=== PATIENT | male | born 1980 | race Two or more races ===

== ENCOUNTER 2025-08-06 03:38 | Emergency (ER) | payer OTHER, SELFPAY ==
[2025-08-06 03:39] VITALS: BP 189/143; PULSE 87; RESP 20; TEMP 36.8; O2SAT 97
[2025-08-06 03:40] VITALS: BMI 36.0
--- NOTE | 2025-08-06 03:42 | EKG_ITS ---
[facility] Test Date: 2025-08-06 Pat Name: JM AYALA Department: Room: - Gender: Male [employer]: : 1980 Requested By: Ramiro Kimble Order Number: [id number] Reading MD: Ramiro Kimble Measurements Intervals [place] Rate: 81 P: 38 NM: 157 QRS: -5 QRSD: 92 T: 8 QT: 355 QTc: 413 Interpretive Statements SINUS RHYTHM No previous ECG available for comparison /store/S0/[id number]/ecg/[id number].pdf
--- NOTE | 2025-08-06 04:00 | XR_ITS ---
EXAMINATION: PA chest single view TECHNIQUE: Upright PA chest single view Date and time: August 08, 2025, 0441 hours INDICATIONS: Coughing shortness of breath chest pain today. FINDINGS: Normal heart size Mild opacity right base laterally Left lung clear Intact osseous structures IMPRESSION: Early pneumonia right base
--- NOTE | 2025-08-06 04:04 | PD.EDRME ---
Rapid Medical Screening Exam RME Arrival date/time: 08/06/25 03:38 45M with history of HTN presents to ED with 5 days of cough (finished Z-miri) as well as 1 day of heart palps, CP, and SOB. Patient denies drug/alcohol use. Chief Complaint: Arrhythmia/Palpitations Time Seen by Provider: 08/06/25 04:00 Vital signs: Vital Signs Temperature 98.2 F 08/06/25 03:39 Pulse Rate 87 08/06/25 03:39 Respiratory Rate 20 08/06/25 03:39 Blood Pressure 189/143 H 08/06/25 03:39 Pulse Oximetry (%) 97 08/06/25 03:39 Oxygen Delivery Method Room Air 08/06/25 03:39 Exam: Clear lungs. Normal WOB. Clinical Impression: URI vs CAP vs PE vs anxiety vs drug use
[2025-08-06 04:28] LABS: Basophils # (Auto) 0.0 Thou/mm3 (0.0-0.2); Basophils % (Auto) 0 % (0-2.5); Eosinophils # (Auto) 0.1 Thou/mm3 (0.0-0.5); Eosinophils % (Auto) 1 % (0-10); Hematocrit 44.7 % (41.0-53.0); Hemoglobin 14.9 g/dL (13.5-16.0); Immature Granulocytes Auto 0.03 Thou/mm3 (0.00-0.00); Lymphocytes # (Auto) 3.3 Thou/mm3 (1.0-4.8); Lymphocytes % (Auto) 48 % (10-50); Mean Corpuscular HGB Conc 33.3 g/dl (31.0-37.0); Mean Corpuscular Hemoglobin 29.7 pg (25.0-35.0); Mean Corpuscular Volume 89 fL (80-100); Monocytes # (Auto) 0.6 Thou/mm3 (0.0-0.8); Monocytes % (Auto) 9 % (0-12); Neutrophils # (Auto) 2.9 Thou/mm3 (1.8-7.7); Neutrophils % (Auto) 42 % (37-80); Nucleated Red Blood Cell # 0.00 Thou/mm3 (0.00-0.00); Nucleated Red Blood Cell % 0 /100 WBC (0); Platelet Count 211 Thou/mm3 (140-440); RDW Standard Deviation 40.3 fL (35.1-43.9); Red Blood Count 5.02 Miln/mm3 (4.50-5.90); White Blood Count 7.0 Thou/mm3 (3.8-10.6)
[2025-08-06 04:47] LABS: D-Dimer < 250 ng/mL (<600)
[2025-08-06 04:52] LABS: Alanine Aminotransferase 12 U/L (10-49); Albumin, Serum 4.9 gm/dL (3.5-5.0); Albumin/Globulin Ratio 1.4 (1.2-2.2); Alkaline Phosphatase 78 U/L (46-116); Anion Gap 9 (7-16); Aspartate Amino Transferase 18 U/L (0-34); BUN/Creatinine Ratio 16 Ratio (12-20); Bilirubin,Total 0.3 mg/dL (0.3-1.2); Blood Urea Nitrogen 19 mg/dL (9-23); Calcium 9.9 mg/dL (8.3-10.6); Calcium (Corrected) 9.9 mg/dL (8.5-10.1); Carbon Dioxide 28.7 mMol/L (20.0-31.0); Chloride 105 mMol/L (98-107); Creatinine (Component) 1.2 mg/dL (0.6-1.3); Estimated Creatinine Clearance 90.4 mL/min (>60); Globulin 3.5 gm/dL (2.3-3.5); Glucose 102 mg/dL (74-106); Osmolality,Calculated 287 (275-295); Potassium 4.4 mMol/L (3.4-5.1); Sodium 143 mMol/L (136-145); Total Protein 8.4 gm/dL (5.7-8.2); Troponin I < 0.020 ng/mL (0.0-0.045); eGFR > 60 See Note
[2025-08-06 06:47] VITALS: BP 151/107; PULSE 114; RESP 22; TEMP 36.8; O2SAT 96
--- NOTE | 2025-08-06 06:52 | EDNOTE_ITS ---
ED Arrhythmia Palp. RME/HPI General Chief Complaint: Arrhythmia/Palpitations Stated Complaint: PALPITATIONS Time Seen by Provider: 08/06/25 04:00 Source: patient Arrival date/time: 08/06/25 03:38 Mode of arrival: ambulatory Limitations: no limitations RME / HPI complaint: palpitations Onset (ago): hour(s) Duration: intermittent Severity: mild Associated symptoms: cough RME / HPI narrative: 08/06/25 03:38 45M with history of HTN presents to ED with 5 days of cough (finished Z-miri) as well as 1 day of heart palps, CP, and SOB. Patient denies drug/alcohol use. Exam: Clear lungs. Normal WOB. Impression: URI vs CAP vs PE vs anxiety vs drug use Related Data Previous Rx's ?Medication ?Instructions ?Recorded levofloxacin 500 mg tablet 500 mg PO Q24H 10 days #10 tabs 08/06/25 prednisone 20 mg tablet See Taper PO QDAY allergic 1 10/07/24 reaction #18 tabs Allergies Allergy/AdvReac Type Severity Reaction Status Date / Time No Known Allergies Allergy Verified 08/06/25 03:39 Review of Systems Review of Systems Systems Reviewed: All systems reviewed, normal except as documented Past Medical History Social History SMOKING STATUS: Never smoker ED Exam General Limitations: Present no limitations General appearance: Present alert and in no apparent distress Head Head exam: Present atraumatic Eye Eye exam: Present normal appearance, PERRL and EOMI ENT ENT exam: Present normal exam, normal oropharynx and mucous membranes moist Neck Neck exam: Present normal inspection, full ROM and trachea midline Chest Chest inspection: Present normal inspection and symmetric chest wall rise Respiratory Respiratory exam: Present normal lung sounds bilaterally Cardiovascular Cardiovascular exam: Present regular rate, normal rhythm and normal heart sounds Abdominal Exam Abdominal exam: Present soft and normal bowel sounds Extremities Exam Extremities exam: Present normal inspection and full ROM Back Exam Back exam: Present normal inspection and full ROM Neurological Exam Neurological exam: Present alert, oriented X3 and CN II-XII intact Psychiatric Psychiatric exam: Present normal affect and normal mood Skin Skin exam: Present warm, dry, intact and normal color Course Quality Measures none Orders Category Date Time Status EKG (ED ONLY) *Do not use* NOW Care 08/06/25 03:42 Completed EKG (ED Only) Stat Exams 08/06/25 03:42 Draft XR chest 1V portable Stat Exams 08/06/25 04:00 Taken CBC Stat Lab 08/06/25 04:20 Completed Comprehensive Metabolic Panel Stat Lab 08/06/25 04:20 Completed D-Dimer Stat Lab 08/06/25 04:20 Completed Troponin I Stat Lab 08/06/25 04:20 Completed Troponin I Stat Lab 08/06/25 07:00 Ordered Vital Signs Vital signs: Vital Signs Temperature 98.2 F 08/06/25 03:39 Pulse Rate 87 08/06/25 03:39 Respiratory Rate 20 08/06/25 03:39 Blood Pressure 189/143 H 08/06/25 03:39 Pulse Oximetry (%) 97 08/06/25 03:39 Oxygen Delivery Method Room Air 08/06/25 03:39 Arrhythmia/Palpitations MDM Narrative MDM Narrative:: Patient is a 45-year-old male who has had a recent upper respiratory infection treated with azithromycin. He still has a persistent cough after taking the antibiotics. His examination is normal. Patient data External records reviewed:: None Clinical information provided by:: patient Social determinants that could affect healthcare access:: none Patient has the following chronic illnesses:: NONE How is presenting disease/condition affected by chronic disease/condition?: no chronic disease Evaluation data The following diagnostics were reviewed and interpreted by me:: radiology exam(s) Lab and/or radiology exams considered but not ordered:: Chest x-ray 1 view shows mild infiltrate at the right lateral base. Atelectasis versus early pneumonia Interpretation Summary: There is an early infiltrate right base which may be resolving from being treated with azithromycin. We will treat with Levaquin and prednisone at this time. Medications / Prescriptions Medications or Prescriptions considered but not ordered:: Amoxicillin Medication administrations:: None Consultations Consultation(s) initiated? (list below): No Diagnosis Most likely diagnosis given after review of the tests above:: Postinfectious cough versus resolving lower respiratory infection versus early pneumonia right base Admission Indicated Admission indicated?: not indicated Admission Request Was there a request for admission?: No Disposition Plan Disposition Plan: Discharge Discharge Attestation Discharge Attestation: The patient and all family members were given an opportunity to ask questions and understood the discharge instructions. Discharge instructions specifically effects, indications for sooner follow up or return to the emergency department, and the expected course of current diagnosis. Patient condition: Stable Discharge Plan Plan Patient Disposition: HOME (Self Care) Patient condition on transfer: Stable Prescriptions/Referrals Prescriptions/Med Rec: New levofloxacin 500 mg tablet 500 mg PO Q24H 10 Days Qty: 10 0RF prednisone 20 mg tablet See Taper PO QDAY MDD 3 Qty: 18 0RF Taper: Prednisone Taper 20 mg DAILY for 2 Days and 0 Hour 10 mg DAILY for 2 Days and 0 Hour 5 mg DAILY for 7 Days and 0 Hour Rx Instructions: Take 3 Tabs q Day for 3 days then take 2 tabs q Day for 3 days then take 1 tablet q Day for 3 days then D/C Referrals: No Primary/Family,Physician [Primary Care Provider] - In 1 week Problem List Clinical Impression: Infiltrate of lower lobe of right lung present on imaging study Patient/Caregiver Discharge Instructions Discharge Activity: activity as tolerated Additional Instructions: Please take the prednisone and Levaquin as directed. Rest for the next week. No working out. No work for the next 3 to 4 days. Print Language: Indonesian Stand Alone Forms: Nika Award Info., Work/School Release, Patient Portal Info Letter
[2025-08-06 07:26] LABS: Troponin I < 0.020 ng/mL (0.0-0.045)
[2025-08-06 07:54] VITALS: BP 141/101; PULSE 64; RESP 20; TEMP 36.6; O2SAT 98
== END 2025-08-06 08:18 | disposition home or self-care (01) ==
PROVIDERS: Physician Assistant; Emergency Provider Family Medicine
DX: J18.9 Pneumonia, unspecified organism (principal); I10 Essential (primary) hypertension
CPT/HCPCS: 36415; 71045; 80053; 84484; 85025; 85379; 93005; 99283